=== PATIENT | male | born 1955 | race Asian ===

== ENCOUNTER 2018-01-22 04:11 | Emergency (ER) | payer MEDICAID ==
[~2018-01-22] VITALS: Ht 165.1 cm; Wt 67.3 kg
[~2018-01-22 04:11] MED LIST: ASPI-1182 PO; METO25 PO
[2018-01-22 05:25] VITALS: BP 114/70
== END 2018-01-22 05:41 | disposition home or self-care (01) ==
LOC: EMS 04:11
DX: I10 Essential (primary) hypertension (principal); Z79.82 Long term (current) use of aspirin

== ENCOUNTER 2021-04-11 15:12 | Inpatient (IN) | payer MEDICAID ==
[~2021-04-11] VITALS: Ht 165.1 cm; Wt 57.9 kg
[~2021-04-11 15:12] MED LIST changes: -ASPI-1182 PO; +ASPI-1444 PO
[2021-04-11] MEDS ORDERED: SODIUM CHLORIDE 0.9% 2,000 ML IV ONE (16:30)
[2021-04-11] MEDS ORDERED: LORazepam 2 MG/ML VIAL IVP ONE (16:30)
[2021-04-11] MEDS ORDERED: ACETAMINOPHEN 1000 MG/ISO-OSM 100 ML IV ONE (16:30)
[2021-04-11] MEDS ORDERED: LevETIRAcetam 1,000 MG in DEXTROSE 5%-WATER 100 ML IV ONE (16:30)
[2021-04-11 17:06] LABS: BASOPHILS % (AUTO) 0.1 % (0.0-2.0); EOSINOPHILS % (AUTO) 0 % (1.0-6.0); HEMATOCRIT 33.9 % (41-53); HEMOGLOBIN 12.3 g/dL (13.5-17.5); LYMPHOCYTES # (AUTO) 0.5 K/uL (1.0-4.8); LYMPHOCYTES % (AUTO) 7.5 % (22.0-44.0); MEAN CORPUSCULAR HEMOGLOBIN 29.4 pg (26.0-34.0); MEAN CORPUSCULAR HGB CONC 36.3 G/dL (31.0-37.0); MEAN CORPUSCULAR VOLUME 81 fL (80-100); MONOCYTES # (AUTO) 0.4 K/uL (0.1-1.0); MONOCYTES % (AUTO) 6.1 % (2.0-9.0); NEUTROPHILS # (AUTO) 5.5 K/uL (1.8-7.7); PLATELET COUNT (AUTO) 262 K/uL (150-450); RED BLOOD CELL COUNT(AUTO) 4.19 MIL/uL (4.50-5.90); RED CELL DISTRIBUTION WIDTH 12.7 % (11.5-14.5)
[2021-04-11 17:07] LABS: COVID AG,FIA SOURCE NASOPHARYNGEAL
[2021-04-11 17:09] LABS: NEUTROPHILS % (AUTO) 86.3 % (40.0-70.0)
[2021-04-11 17:25] LABS: LACTIC ACID 1.6 mmol/L (0.4-2.0)
[2021-04-11 17:41] LABS: INR 1.1 (0.9-1.1); PROTHROMBIN TIME 11.4 SEC (9.4-11.6)
[2021-04-11 17:48] LABS: ALANINE AMINOTRANSFERASE 17 U/L (12-78); ALBUMIN 2.7 g/dL (3.4-5.0); ALKALINE PHOSPHATASE 91 U/L (46-116); ANION GAP 7 mmol/L (8-16); ASPARTATE AMINOTRANSFERASE 21 U/L (15-37); BILIRUBIN,TOTAL 1.6 mg/dL (0.1-1.0); C-REACTIVE PROTEIN QUANT 5.27 mg/dL (0.00-0.30); CALCIUM, TOTAL 7.7 mg/dL (8.8-10.5); CARBON DIOXIDE 24 mmol/L (22-29); CHLORIDE 83 mmol/L (98-107); CREATINE KINASE, TOTAL ONLY 635 U/L (39-308); CREATININE 0.72 mg/dL (0.60-1.30); FERRITIN 259 ng/mL (26-388); GLOMERULAR FILTR. RATE CALC > 60 mL/min (>60); GLUCOSE,RANDOM 130 mg/dL (70-110); LIPASE 37 U/L (73-393); POTASSIUM 3.3 mmol/L (3.5-5.1); TOTAL PROTEIN, SERUM 6.4 g/dL (6.4-8.2); UREA NITROGEN, BLOOD 5 mg/dL (7-18)
[2021-04-11 17:52] LABS: SODIUM SERUM 114 mmol/L (136-145)
[2021-04-11] MEDS ORDERED: SODIUM CHLORIDE 0.9% 100 ML ONE (18:21)
[2021-04-11] MEDS ORDERED: IOHEXOL 350 MG/ML 100 ML VIAL ONE (18:21)
[2021-04-11] MEDS ORDERED: POTASSIUM CHLORIDE 20 MEQ ER TABLET PO PRN (18:30)
[2021-04-11] MEDS ORDERED: SODIUM CHLORIDE 3% 500 ML IV ONE ×2 (18:30→19:15)
[2021-04-11] MEDS ORDERED: ONDANSETRON HCL 4 MG/2 ML VIAL IVP PRN (18:30)
[2021-04-11] MEDS ORDERED: ACETAMINOPHEN 325 MG TABLET PO PRN (18:30)
[2021-04-11 18:58] LABS: B-TYPE NATRIURETIC PEPTIDE 148 pg/mL (0-100)
[2021-04-11] MEDS ORDERED: HALOPERIDOL LACTATE 5 MG/ML VIAL IVP ONE (19:00)
[2021-04-11] MEDS ORDERED: DiphenhydrAMINE HCL 50 MG/ML VIAL IVP ONE (19:00)
[2021-04-11 19:58] LABS: CHLORIDE 89 mmol/L (98-107); CREATININE 0.68 mg/dL (0.60-1.30); GLOMERULAR FILTR. RATE CALC > 60 mL/min (>60); POTASSIUM 4.2 mmol/L (3.5-5.1); UREA NITROGEN, BLOOD 5 mg/dL (7-18)
[2021-04-11] MEDS: DOCUSATE SODIUM 100 MG CAPSULE PO SCH (20:06)
[2021-04-11 20:37] LABS: ANION GAP 5 mmol/L (8-16); CALCIUM, TOTAL 7.7 mg/dL (8.8-10.5); CARBON DIOXIDE 24 mmol/L (22-29); GLUCOSE,RANDOM 118 mg/dL (70-110); PHOSPHORUS 2.6 mg/dL (2.5-4.9); THYROID STIMULATING HORMONE 0.62 uIU/mL (0.36-3.74)
[2021-04-11 20:45] LABS: SODIUM SERUM 118 mmol/L (136-145)
[2021-04-11 20:56] LABS: APPEARANCE,URINE CLEAR (CLEAR); BILIRUBIN,URINE NEGATIVE (NEGATIVE); GLUCOSE, URINE (UA) NEGATIVE (NEGATIVE); KETONES,URINE TRACE mg/dL (NEGATIVE); LEUKOCYTE ESTERASE ,URINE NEGATIVE (NEGATIVE); NITRATE,URINE NEGATIVE (NEGATIVE); OCCULT BLOOD,URINE NEGATIVE (NEGATIVE); POTASSIUM,URINE RANDOM 25 mmol/L (12-75); PROTEIN,URINE NEGATIVE (NEGATIVE); SODIUM,URINE RANDOM 9 mmol/l (20-110)
[2021-04-11 21:01] LABS: AMPHET/METH SCREEN,URINE NEGATIVE (NEGATIVE); BARBITURATE SCREEN, URINE NEGATIVE (NEGATIVE); BENZODIAZEPINES SCREEN,URINE NEGATIVE (NEGATIVE); CANNABINOID SCREEN,URINE NEGATIVE (NEGATIVE); COCAINE SCREEN,URINE NEGATIVE (NEGATIVE); METHADONE SCREEN, URINE NEGATIVE (NEGATIVE); OPIATE SCREEN,URINE NEGATIVE (NEGATIVE)
[2021-04-11 21:02] LABS: PHENCYCLIDINE SCREEN,URINE NEGATIVE (NEGATIVE)
[2021-04-11 22:08] LABS: BACTERIA,URINE None Seen /HPF (None Seen); RBC,URINE None Seen /HPF (0-2)
[2021-04-11 22:09] LABS: WBC,URINE 0-2 /HPF (0-5)
[2021-04-11] MEDS ORDERED: HALOPERIDOL LACTATE 5 MG/ML VIAL IM ONE (23:00)
[2021-04-11] MEDS: LORazepam 2 MG/ML VIAL IVP PRN (23:16)
[2021-04-11] MEDS: HEPARIN SODIUM,PORCINE 5,000 UNITS/ML VIAL SQ SCH (23:43)
[2021-04-12] MEDS ORDERED: DESMOPRESSIN ACETATE 2 MCG in SODIUM CHLORIDE 0.9% 50 ML IV ONE ×2
[2021-04-12] MEDS ORDERED: DEXTROSE 5%-0.45% SODIUM CHL 1,000 ML IV ONE
[2021-04-12] MEDS ORDERED: DEXTROSE 5%-WATER 500 ML IV ONE
[2021-04-12] MEDS ORDERED: LORazepam 2 MG/ML VIAL IVP ONE (02:15)
[2021-04-12 03:01] LABS: ANION GAP 7 mmol/L (8-16); CALCIUM, TOTAL 7.8 mg/dL (8.8-10.5); CARBON DIOXIDE 25 mmol/L (22-29); CHLORIDE 97 mmol/L (98-107); CREATININE 0.77 mg/dL (0.60-1.30); GLOMERULAR FILTR. RATE CALC > 60 mL/min (>60); GLUCOSE,RANDOM 73 mg/dL (70-110); POTASSIUM 3.2 mmol/L (3.5-5.1); SODIUM SERUM 129 mmol/L (136-145); UREA NITROGEN, BLOOD 6 mg/dL (7-18)
[2021-04-12] MEDS ORDERED: POTASSIUM CHLORIDE 20 MEQ in DEXTROSE 5%-WATER 1,000 ML IV ONE (03:30)
[2021-04-12] MEDS ORDERED: DiphenhydrAMINE HCL 50 MG/ML VIAL IM ONE (04:30)
[2021-04-12] MEDS ORDERED: HALOPERIDOL LACTATE 5 MG/ML VIAL IM ONE (04:30)
[2021-04-12] MEDS: FAMOTIDINE 20 MG TABLET PO SCH (08:31)
[2021-04-12] MEDS: DOCUSATE SODIUM 100 MG CAPSULE PO SCH ×2 (08:31→21:00)
[2021-04-12] MEDS: HEPARIN SODIUM,PORCINE 5,000 UNITS/ML VIAL SQ SCH ×3 (08:34→23:58)
[2021-04-12] MEDS: LORazepam 2 MG/ML VIAL IVP PRN ×5 (08:35→22:04)
[2021-04-12 11:12] LABS: POTASSIUM 3.4 mmol/L (3.5-5.1)
[2021-04-12] MEDS ORDERED: DEXTROSE 5%-WATER 1,000 ML IV ONE (14:00)
[2021-04-12] MEDS ORDERED: ACETAMINOPHEN 650 MG RECTAL SUPPOSITORY PR ONE (17:30)
[2021-04-12 21:30] VITALS: BP 123/77
[2021-04-12 23:36] LABS: POTASSIUM 3.2 mmol/L (3.5-5.1)
[2021-04-12] MEDS ORDERED: SODIUM CHLORIDE 0.9% 250 ML IV ONE (23:52)
[2021-04-12] MEDS ORDERED: SODIUM CHLORIDE 0.9% 500 ML IV ONE (23:52)
[2021-04-12] MEDS: POTASSIUM CHL 10 MEQ/WATER 50 ML IV PRN (23:57)
[2021-04-13] VITALS (7 sets, daily range): BP systolic 63–178; BP diastolic 56–93
[2021-04-13] MEDS: POTASSIUM CHL 10 MEQ/WATER 50 ML IV PRN ×2 (01:05→02:42)
[2021-04-13] MEDS: LORazepam 2 MG/ML VIAL IVP PRN ×2 (02:54→09:18)
[2021-04-13 08:09] LABS: BASOPHILS % (AUTO) 0.7 % (0.0-2.0); EOSINOPHILS % (AUTO) 0.3 % (1.0-6.0); HEMATOCRIT 38.1 % (41-53); LYMPHOCYTES # (AUTO) 0.4 K/uL (1.0-4.8); LYMPHOCYTES % (AUTO) 5.6 % (22.0-44.0); MEAN CORPUSCULAR HEMOGLOBIN 29.7 pg (26.0-34.0); MEAN CORPUSCULAR HGB CONC 36.8 G/dL (31.0-37.0); MEAN CORPUSCULAR VOLUME 81 fL (80-100); MONOCYTES # (AUTO) 0.4 K/uL (0.1-1.0); MONOCYTES % (AUTO) 6.2 % (2.0-9.0); NEUTROPHILS # (AUTO) 5.5 K/uL (1.8-7.7); PLATELET COUNT (AUTO) 310 K/uL (150-450); RED BLOOD CELL COUNT(AUTO) 4.72 MIL/uL (4.50-5.90); RED CELL DISTRIBUTION WIDTH 12.9 % (11.5-14.5)
[2021-04-13 08:12] LABS: NEUTROPHILS % (AUTO) 87.2 % (40.0-70.0)
[2021-04-13 08:19] LABS: ANION GAP 8 mmol/L (8-16); CALCIUM, TOTAL 8.4 mg/dL (8.8-10.5); CARBON DIOXIDE 25 mmol/L (22-29); CHLORIDE 99 mmol/L (98-107); CREATININE 0.67 mg/dL (0.60-1.30); GLOMERULAR FILTR. RATE CALC > 60 mL/min (>60); GLUCOSE,RANDOM 73 mg/dL (70-110); POTASSIUM 3.8 mmol/L (3.5-5.1); SODIUM SERUM 132 mmol/L (136-145); UREA NITROGEN, BLOOD 6 mg/dL (7-18)
[2021-04-13] MEDS: HEPARIN SODIUM,PORCINE 5,000 UNITS/ML VIAL SQ SCH ×3 (08:21→23:27)
[2021-04-13] MEDS: DOCUSATE SODIUM 100 MG CAPSULE PO SCH ×2 (08:30→20:54)
[2021-04-13] MEDS: FAMOTIDINE 20 MG TABLET PO SCH (08:30)
[2021-04-14 04:25] VITALS: BP 123/66
[2021-04-14 07:35] VITALS: BP 111/61
[2021-04-14] MEDS: HEPARIN SODIUM,PORCINE 5,000 UNITS/ML VIAL SQ SCH ×3 (08:00→23:12)
[2021-04-14] MEDS: DOCUSATE SODIUM 100 MG CAPSULE PO SCH ×2 (09:00→20:03)
[2021-04-14] MEDS ORDERED: LORazepam 2 MG/ML VIAL IVP PRN (10:30)
[2021-04-14] MEDS: FAMOTIDINE 20 MG TABLET PO SCH (10:32)
[2021-04-14 11:58] VITALS: BP 101/61
[2021-04-14 15:41] VITALS: BP 116/70
[2021-04-14 20:32] VITALS: BP 101/74
[2021-04-15 00:08] VITALS: BP 110/56
[2021-04-15 04:43] VITALS: BP 117/71
[2021-04-15 07:20] VITALS: BP 102/57
[2021-04-15] MEDS: FAMOTIDINE 20 MG TABLET PO SCH (09:11)
[2021-04-15] MEDS: HEPARIN SODIUM,PORCINE 5,000 UNITS/ML VIAL SQ SCH (09:11)
[2021-04-15] MEDS: DOCUSATE SODIUM 100 MG CAPSULE PO SCH (09:11)
[2021-04-15 12:00] VITALS: BP 146/89
== END 2021-04-15 14:40 | disposition home or self-care (01) | DRG 426 ==
LOC: EMS 15:14 → ICU 04-12 18:41 → 5N 04-13 22:19
PROVIDERS: ADMIT Internal Medicine; ATTEND Internal Medicine
DX: E87.1 Hypo-osmolality and hyponatremia (principal); U07.1 COVID-19; G93.41 Metabolic encephalopathy; G40.909 Epilepsy, unspecified, not intractable, without status epilepticus; E86.1 Hypovolemia; E78.5 Hyperlipidemia, unspecified; I10 Essential (primary) hypertension; E78.00 Pure hypercholesterolemia, unspecified; Z86.16 Personal history of COVID-19
CPT/HCPCS: 70450; 70551; 71045; 71260; 72193; 74160; 80048; 80053; 81001; 82533; 82550; 82728; 83605; 83690; 83735; 83880; 83930; 83935; 84100; 84132; 84133; 84145; 84295; 84300; 84443; 84484; 84560; 85025; 85610; 85730; 86140; 87040; 87081; 93005; 99291; G0378; G0480; J0131; J0712; J1200; J1630; J1644; J2060; J2597; J3480; J7030; J7040; J7050; J7060; Q9967; 36415-L1; 36415-TC; U0003

== ENCOUNTER 2022-12-12 11:46 | Emergency (ER) | payer MEDICARE, MEDICAID ==
[~2022-12-12] VITALS: Ht 167.6 cm; Wt 59.1 kg
[2022-12-12 11:47] VITALS: TEMP 98.6
[2022-12-12 12:28] VITALS: BP 137/76; PULSE 73; RESP 18
[2022-12-12] MEDS ORDERED: TRIA5PAS10 TP (12:44)
== END 2022-12-12 12:49 | disposition home or self-care (01) ==
LOC: EMS 11:47
DX: I10 Essential (primary) hypertension (principal); E78.00 Pure hypercholesterolemia, unspecified
CPT/HCPCS: 99281; Z7502

== ENCOUNTER 2022-12-18 17:40 | Emergency (ER) | payer MEDICARE, MEDICAID ==
[~2022-12-18] VITALS: Ht 167.6 cm; Wt 60.0 kg
[~2022-12-18 17:40] MED LIST changes: +TRIA5PAS10 TP
[2022-12-18] MEDS ORDERED: IOHEXOL 9 MG/ML 500 ML BOTTLE PO ONE (18:00)
[2022-12-18] MEDS ORDERED: ONDANSETRON HCL 4 MG/2 ML VIAL IVP ONE (18:00)
[2022-12-18] MEDS ORDERED: SODIUM CHLORIDE 0.9% 1,000 ML IV ONE (18:00)
[2022-12-18] MEDS ORDERED: MORPHINE SULFATE 4 MG/ML SYRINGE IVP ONE (18:00)
[2022-12-18 18:13] LABS: BASOPHILS % (AUTO) 1.2 % (0.0-2.0); EOSINOPHILS % (AUTO) 1.1 % (1.0-6.0); HEMATOCRIT 43.2 % (41-53); HEMOGLOBIN 14.8 g/dL (13.5-17.5); LYMPHOCYTES # (AUTO) 1.2 K/uL (1.0-4.8); LYMPHOCYTES % (AUTO) 19.9 % (22.0-44.0); MEAN CORPUSCULAR HEMOGLOBIN 30.1 pg (26.0-34.0); MEAN CORPUSCULAR HGB CONC 34.3 G/dL (31.0-37.0); MEAN CORPUSCULAR VOLUME 88 fL (80-100); MONOCYTES # (AUTO) 0.5 K/uL (0.1-1.0); MONOCYTES % (AUTO) 7.7 % (2.0-9.0); NEUTROPHILS # (AUTO) 4.3 K/uL (1.8-7.7); NEUTROPHILS % (AUTO) 70.1 % (40.0-70.0); PLATELET COUNT (AUTO) 258 K/uL (150-450); RED BLOOD CELL COUNT(AUTO) 4.93 MIL/uL (4.50-5.90); RED CELL DISTRIBUTION WIDTH 13.5 % (11.5-14.5); WHITE BLOOD COUNT (AUTO) 6.1 K/uL (4.5-11.0)
[2022-12-18 18:31] LABS: LACTIC ACID 1.4 mmol/L (0.4-2.0); TROPONIN I-HIGH SENSITIVITY 5 ng/L (<76)
[2022-12-18 18:36] LABS: ANION GAP 7 mmol/L (8-16); CALCIUM, TOTAL 9.1 mg/dL (8.8-10.5); CARBON DIOXIDE 27 mmol/L (22-29); CHLORIDE 101 mmol/L (98-107); CREATININE 0.79 mg/dL (0.60-1.30); GLOMERULAR FILTR. RATE CALC > 60 mL/min (>60); GLUCOSE,RANDOM 110 mg/dL (70-110); POTASSIUM 3.8 mmol/L (3.5-5.1); SODIUM SERUM 135 mmol/L (136-145); UREA NITROGEN, BLOOD 9 mg/dL (7-18)
[2022-12-18 18:41] LABS: ALANINE AMINOTRANSFERASE 18 U/L (12-78); ALBUMIN 3.6 g/dL (3.4-5.0); ALKALINE PHOSPHATASE 123 U/L (46-116); ASPARTATE AMINOTRANSFERASE 18 U/L (15-37); BILIRUBIN,TOTAL 1.5 mg/dL (0.1-1.0); LIPASE 24 U/L (16-77); TOTAL PROTEIN, SERUM 7.7 g/dL (6.4-8.2)
[2022-12-18] MEDS ORDERED: IOHEXOL 350 MG/ML 100 ML VIAL ONE (18:53)
[2022-12-18] MEDS ORDERED: SODIUM CHLORIDE 0.9% 100 ML ONE (18:53)
[2022-12-18] MEDS ORDERED: METR500 PO (21:48)
[2022-12-18] MEDS ORDERED: ONDA-104 PO (21:48)
[2022-12-18] MEDS ORDERED: CEPH-558 PO (21:48)
[2022-12-18] MEDS ORDERED: ACET-66 PO (21:48)
[2022-12-18 22:00] VITALS: BP 137/80; PULSE 72; RESP 18
== END 2022-12-18 22:51 | disposition home or self-care (01) ==
LOC: EMS 17:40
DX: R10.32 Left lower quadrant pain (principal); K57.32 Diverticulitis of large intestine without perforation or abscess without bleeding; K52.9 Noninfective gastroenteritis and colitis, unspecified; E78.00 Pure hypercholesterolemia, unspecified; I10 Essential (primary) hypertension
CPT/HCPCS: 99285; 74177; 96374; 71045; 96361; 96375; 80053; 83605; 83690; 84484; 85025; 36415; 93005; J2270; J2405; Q9967; J7030; J7050